=== PATIENT | female | born 1950 | race Caucasian/White ===

== ENCOUNTER 2019-02-25 05:38 | Emergency (ER) | payer MEDICARE, OTHER ==
[2019-02-25] MEDS ORDERED: Sodium Chloride 0.9% 10 ML Syringe FLUSH PRN (06:05)
[2019-02-25] MEDS ORDERED: Morphine 4 MG/ML Syringe IVPUSH PRN (06:05)
--- NOTE | 2019-02-25 06:09 | EDM.PDOC ---
<OfficerYahir - Last Filed: 02/25/19 06:52> ED HPI GENERAL MEDICAL PROBLEM - General Chief Complaint: Chest Pain Stated Complaint: HEART ISSUES Time Seen by Provider: 02/25/19 06:01 Source of Information: Reports: Patient, RN Notes Reviewed History Limitations: Reports: No Limitations - History of Present Illness INITIAL COMMENTS - FREE TEXT/NARRATIVE: 69-year-old female presents emergency department today complaint of chest pain, she states she is awoke this morning within the last hour by chest pain she described it more as pressure she feels she was diaphoretic at the time felt no nausea vomiting breath. She has no known cardiac history she does have a strong family history siblings age 50 myocardial infarction father first myocardial infarction at age 38. Treatments OFFICE EMPLOYEE: Reports: Aspirin - Related Data Allergies Allergy/AdvReac Type Severity Reaction Status Date / Time No Known Allergies Allergy Verified 02/25/19 05:52 Home Meds: Home Meds Loratadine/Pseudoephedrine [Claritin-D 12 Hour] 1 tab PO Q12HR 02/25/19 [History ] atorvaSTATin [Lipitor] 40 mg PO BEDTIME 02/25/19 [History] glipiZIDE [Glucotrol] 10 mg PO DAILY 02/25/19 [History] Past Medical History INTERVENTION SPECIALIST History: Reports: - Past Surgical History HEENT Surgical History: Reports: Adenoidectomy, Cataract Surgery, Tonsillectomy , Other (See Below) Other HEENT Surgeries/Procedures: multi-focal eye lenses GI Surgical History: Reports: Appendectomy Female Surgical History: Reports: Hysterectomy, Salpingo-Oophorectomy Social & Family History - Tobacco Use Smoking Status *Q: Never Smoker Second Hand Smoke Exposure: No - Caffeine Use Caffeine Use: Reports: Coffee - Recreational Drug Use Recreational Drug Use: No ED ROS GENERAL - Review of Systems Review Of Systems: See Below Constitutional: Reports: Diaphoresis HEENT: Reports: No Symptoms Respiratory: Reports: No Symptoms Cardiovascular: Reports: Chest Pain GI/Abdominal: Reports: No Symptoms : Reports: No Symptoms Musculoskeletal: Reports: No Symptoms Skin: Reports: No Symptoms Neurological: Reports: No Symptoms ED EXAM, GENERAL - Physical Exam Exam: See Below Free Text/Narrative:: General: Female, not in any distress, alert and oriented x3 HEENT: head is atraumatic normocephalic, eyes pupils equal round reactive to light, sclera clear no conjunctivitis appreciated. Ears tympanic membranes clear and sharp landmarks and light reflex are present bilaterally canals are clear. Nose no septal deviation, nares are clear, no blood present. Mouth mucosa is moist and pink no erythema or exudate noted in soft palate, tongue is midline uvula is midline, dentition is intact. Neck: Supple no thyromegaly no tracheal deviation. Nodes: Cervical nodes subclavicular nodes nontender no palpable lymphadenopathy noted. Lungs: clear to auscultation bilaterally with symmetrical respirations, no adventitious noise appreciated. CV: Regular rate and rhythm S1 and S2 appreciated no murmurs rubs or gallops noted. Abdomen: Soft, nontender, no palpable masses or organomegaly appreciated, no distention no guarding bowel sounds are present, Neuro: GCS 15 Skin: Warm and dry, intact Extremities: No lower extremity edema appreciated, pedal pulse is +2. Course - Vital Signs Last Recorded V/S: Last Vital Signs Temp 96.7 F 02/25/19 05:47 Pulse 65 02/25/19 09:02 Resp 13 02/25/19 09:02 BP 123/73 02/25/19 09:02 Pulse Ox 95 02/25/19 09:02 - Orders/Labs/Meds Orders: Active Orders 24 hr Category Date Time Status Cardiac Monitoring [RC] .As Directed Care 02/25/19 06:05 Active EKG Documentation Completion [RC] ASDIRECTED Care 02/25/19 06:06 Active Peripheral IV Care [RC] . DIRECTED Care 02/25/19 06:06 Active Peripheral IV Insertion Adult [OM.PC] Stat Oth 02/25/19 06:05 Ordered Saline Lock Insert [OM.PC] Stat Oth 02/25/19 06:05 Ordered EKG 12 Lead [EK] Stat Ther 02/25/19 06:06 Ordered Labs: Laboratory Tests 02/25/19 02/25/19 02/25/19 Range/Units 06:05 06:05 08:52 WBC 6.7 (4.5-11.0) K/uL RBC 4.71 (3.30-5.50) M/uL Hgb 13.9 (12.0-15.0) g/dL Hct 42.1 (36.0-48.0) % MCV 89 (80-98) fL MCH 30 (27-31) pg MCHC 33 (32-36) % Plt Count 167 (150-400) K/uL Neut % (Auto) 48 (36-66) % Lymph % (Auto) 37 (24-44) % [place] % (Auto) 9 H (2-6) % Eos % (Auto) 5 H (2-4) % Baso % (Auto) 1 (0-1) % Sodium 142 (140-148) mmol/L Potassium 3.5 L (3.6-5.2) mmol/L Chloride 107 (100-108) mmol/L Carbon Dioxide 26 (21-32) mmol/L Anion Gap 12.5 (5.0-14.0) mmol/L BUN 16 (7-18) mg/dL Creatinine 0.8 (0.6-1.0) mg/dL Est Cr Clr Drug Dosing 63.34 mL/min Estimated GFR (MDRD) > 60 (>60) Glucose 167 H (74-106) mg/dL Calcium 9.0 (8.5-10.1) mg/dL Total Bilirubin 0.6 (0.2-1.0) mg/dL AST 18 (15-37) U/L ALT 33 (12-78) U/L Alkaline Phosphatase 98 (46-116) U/L CK-MB (CK-2) 2.2 (0-3.6) mg/mL Troponin I < 0.017 < 0.017 (0.000-0.056) ng/mL Total Protein 6.5 (6.4-8.2) g/dL Albumin 3.5 (3.4-5.0) g/dL Globulin 3.0 (2.3-3.5) g/dL Albumin/Globulin Ratio 1.2 (1.2-2.2) Meds: Medications Discontinued Medications Generic Name Dose Route Start Last Admin Trade Name Freq PRN Reason Stop Dose Admin Morphine Sulfate 4 mg 02/25/19 06:05 Morphine IVPUSH 02/26/19 06:05 Q10M PRN Chest Pain Nitroglycerin 0.4 mg 02/25/19 06:05 02/25/19 06:21 Nitrostat SL 02/26/19 06:05 0.4 mg Q5M PRN Administration Chest Pain Sodium Chloride 10 ml 02/25/19 06:05 Saline Flush FLUSH ASDIRECTED PRN Keep Vein Open - Re-Assessments/Exams Free Text/Narrative Re-Assessment/Exam: 02/25/19 06:52 heart score is 2 Departure - Departure Disposition: Home, Self-Care 01 Clinical Impression: Atypical chest pain Instructions: Nonspecific Chest Pain, [id number] Referrals: PCP,None [Primary Care Provider] - Forms: ED Department Discharge Care Plan Goals: Continue diet and activity as tolerated, return if pain is recurring and persistent and consider discussing your symptoms with your primary provider as to whether any further testing or evaluation would be worthwhile. <Juancarlos Gordillo - Last Filed: 02/25/19 10:39> Course - Re-Assessments/Exams Free Text/Narrative Re-Assessment/Exam: 02/25/19 09:25 Care accepted from Officer pending a second troponin. The troponin returned unchanged, she developed no additional symptoms while in the emergency room. She will talk to her primary provider about any further testing such as a stress test or return if symptoms recur. Departure - Departure Time of Disposition: 09:34 Condition: Good
[2019-02-25] MEDS: Nitroglycerin 0.4 MG Tab.SL SL PRN ×2 (06:10→06:21)
--- NOTE | 2019-02-25 06:48 | CRLCR ---
Indication: Chest pain. Technique: Single AP portable view of the chest for obtained. Comparison: None Findings: The heart is normal in size. Left basilar atelectasis identified. No pleural effusion or pneumothorax identified. Impression: Left basilar atelectasis. Dictated by Elly Leon MD @ Feb 25 2019 6:46AM Signed by Dr. Elly Leon @ Feb 25 2019 6:47AM
== END 2019-02-25 09:34 | disposition home or self-care (01) ==
LOC: JP.ED 05:38
DX: R07.89 Other chest pain (principal); Z79.899 Other long term (current) drug therapy
CPT/HCPCS: 36415; 71045; 80053; 82553; 84484; 85025; 93005; 96374; 99285; A9270; 93010; 99284